=== PATIENT | female | born 1990 | race Caucasian/White ===

== ENCOUNTER 2022-06-02 11:36 | Outpatient (CLI) | payer MEDICAID, SELFPAY | END 2022-06-02 11:37 | disposition home or self-care (01) | LOC: LAB 11:37 | PROVIDERS: Visit Provider Family Medicine Adult Medicine | DX: M79.89 Other specified soft tissue disorders (principal); L03.90 Cellulitis, unspecified; R22.33 Localized swelling, mass and lump, upper limb, bilateral | CPT/HCPCS: 85025 ==

== ENCOUNTER 2022-06-04 11:55 | Outpatient (CLI) | payer MEDICAID, SELFPAY ==
[2022-06-04 12:45] LABS: Basophils % 0.3 %; Eosinophils % 0.1 %; Hematocrit 39.5 % (37.0-47.0); Hemoglobin 12.9 g/dL (11.5-15.3); Lymphocytes # 1.5 10^3/uL (0.8-4.8); Lymphocytes % 13.7 %; Mean Corpuscular HGB Conc 32.7 g/dL (30.0-36.0); Mean Corpuscular Hemoglobin 30.4 pg (28.0-34.0); Mean Corpuscular Volume 92.9 fl (81-99); Mean Platelet Volume 8.7 fL (7.4-10.4); Monocytes # 0.4 10^3/uL (0.2-0.9); Monocytes % 3.4 %; Neutrophils # 9.11 10^3/uL (1.8-7.7); Neutrophils % 81.3 %; Nucleated Red Blood Cells % 0 %; Platelet Count 300 10^3/cmm (130-400); Red Blood Count 4.25 10^6/uL (4.1-5.3); Red Cell Distribution Width 14.2 % (12.1-15.1); White Blood Count 11.2 10^3/uL (4.0-10.0)
[2022-06-04 13:08] LABS: Alanine Aminotransferase 61 U/L (0-33); Albumin Level 4.1 g/dL (3.5-5.2); Alkaline Phosphatase 78 U/L (35-105); Anion Gap 18.9 (5-19); Aspartate Amino Transferase 38 U/L (0-32); Blood Urea Nitrogen 10 mg/dL (6-20); Calcium 9.3 mg/dL (8.5-10.5); Carbon Dioxide 21 mmol/L (22-29); Chloride 97 mmol/L (98-107); Globulin 3.4 g/dL (1.3-4.6); Glomerular Filtration Rate 97.6 mL/min (90-130); Glucose 164 mg/dL (65-115); Osmolality Calculated 277 mOsm/kg (285-295); Potassium 4.9 mmol/L (3.5-5.1); Sodium 132 mmol/L (136-145); Total Bilirubin 0.2 mg/dL (0.15-1.2); Total Protein 7.5 g/dL (6.6-8.7)
[2022-06-04 13:12] LABS: Erythrocyte Sedimentation Rate 18 mm/hr (0-15)
== END 2022-06-04 11:56 | disposition home or self-care (01) ==
LOC: LAB 11:57
PROVIDERS: Visit Provider Family Medicine Adult Medicine
DX: L03.90 Cellulitis, unspecified (principal); M79.89 Other specified soft tissue disorders; R22.33 Localized swelling, mass and lump, upper limb, bilateral
CPT/HCPCS: 36415; 80053; 85025; 85651